=== PATIENT | female | born 1940 | race Caucasian/White ===

== ENCOUNTER → 2016-08-16 | Outpatient (CLI) | payer MEDICARE | END | disposition home or self-care (01) | LOC: CFH 10:43 | PROVIDERS: ATTEND Internal Medicine Cardiovascular Disease | DX: I08.3 Combined rheumatic disorders of mitral, aortic and tricuspid valves (principal) | CPT/HCPCS: 93306 ==

== ENCOUNTER → 2017-02-06 | Outpatient (CLI) | payer MEDICARE | LOC: CFH 10:48 | PROVIDERS: ATTEND Internal Medicine | DX: Z12.31 Encounter for screening mammogram for malignant neoplasm of breast (principal); Z79.890 Hormone replacement therapy; Z80.3 Family history of malignant neoplasm of breast; Z98.82 Breast implant status | CPT/HCPCS: 77063; 77067 ==

== ENCOUNTER 2018-02-21 10:16 | Outpatient (CLI) | payer MEDICARE ==
[2018-03-17] MEDS ORDERED: LEVO25TA2 PO (19:20)
[2018-03-17] MEDS ORDERED: FLUT16SP NS (19:21)
[2018-03-17] MEDS ORDERED: HYDROCHLOROTH12.5 MG PO (19:22)
[2018-03-18] MEDS ORDERED: METR500T PO ×2 (10:11)
[2018-03-18] MEDS ORDERED: SULF1TAB24 PO ×2 (10:11)
[2018-03-18] MEDS ORDERED: ONDA4TAB7 PO (10:11)
[2018-03-18] MEDS ORDERED: CIPR500T87 PO (11:15)
[2018-03-18] MEDS ORDERED: METR-90 PO (11:16)
== END 2018-02-21 23:59 | disposition home or self-care (01) ==
LOC: CFH 10:16
PROVIDERS: ATTEND Internal Medicine
DX: Z12.31 Encounter for screening mammogram for malignant neoplasm of breast (principal); Z80.3 Family history of malignant neoplasm of breast
CPT/HCPCS: 77063; 77067

== ENCOUNTER → 2018-03-21 | Outpatient (CLI) | payer MEDICARE ==
[~2018-03-21] MED LIST: CIPR500T87 PO; FLUT16SP NS; HYDROCHLOROTH12.5 MG PO; LEVO25TA2 PO; METR-90 PO; METR500T PO; OMNIPAQUE 350 MG/ML, 100ML BOTTLE ONE; ONDA4TAB7 PO; SULF1TAB24 PO
== END | disposition home or self-care (01) ==
LOC: CFH 14:01
PROVIDERS: ATTEND Internal Medicine
DX: K57.32 Diverticulitis of large intestine without perforation or abscess without bleeding (principal); M85.88 Other specified disorders of bone density and structure, other site; M47.816 Spondylosis without myelopathy or radiculopathy, lumbar region; K76.0 Fatty (change of) liver, not elsewhere classified; Z90.49 Acquired absence of other specified parts of digestive tract
CPT/HCPCS: 74177; Q9967

== ENCOUNTER → 2018-04-23 | Outpatient (CLI) | payer MEDICARE ==
[~2018-04-23] MED LIST changes: -OMNIPAQUE 350 MG/ML, 100ML BOTTLE ONE
== END | disposition home or self-care (01) ==
LOC: CFH 10:15
PROVIDERS: ATTEND Internal Medicine
DX: M81.0 Age-related osteoporosis without current pathological fracture (principal); N95.1 Menopausal and female climacteric states
CPT/HCPCS: 77080

== ENCOUNTER → 2019-02-25 | Outpatient (CLI) | payer MEDICARE ==
[~2019-02-25] MED LIST changes: -FLUT16SP NS; +FLUT16SP24 NS
== END | disposition home or self-care (01) ==
LOC: CFH 10:32
PROVIDERS: ATTEND Internal Medicine
DX: Z12.31 Encounter for screening mammogram for malignant neoplasm of breast (principal); N64.89 Other specified disorders of breast; Z98.82 Breast implant status
CPT/HCPCS: 77063; 77067

== ENCOUNTER → 2020-03-02 | Outpatient (CLI) | payer MEDICARE | END | disposition home or self-care (01) | LOC: CFH 13:01 | PROVIDERS: ATTEND Internal Medicine | DX: Z12.31 Encounter for screening mammogram for malignant neoplasm of breast (principal); Z12.39 Encounter for other screening for malignant neoplasm of breast | CPT/HCPCS: 76641; 77063; 77067 ==

== ENCOUNTER 2020-07-26 15:16 | Emergency (ER) | payer MEDICARE ==
[~2020-07-26] VITALS: Ht 157.5 cm; Wt 58.0 kg
[~2020-07-26 15:16] MED LIST changes: +SULF-23 PO; -SULF1TAB24 PO
[2020-07-26] MEDS ORDERED: FLUORESCEIN/BENOXINATE 5 ML DROPS OP ONE (16:00)
[2020-07-26] MEDS ORDERED: PROPARACAINE OPHTH 0.5%, 15ML ONE (16:03)
[2020-07-26 16:23] LABS: HCT (SEDRATE) 41.4 % (34.6-47.8)
[2020-07-26] MEDS ORDERED: ONDANSETRON 2MG/ML, 2ML ONE (16:29)
[2020-07-26] MEDS ORDERED: MORPHINE SULFATE 4 MG/ML, 1ML ONE (16:29)
[2020-07-26] MEDS ORDERED: MORPHINE SULFATE 4 MG/ML, 1ML IVPush PRN (16:30)
[2020-07-26] MEDS ORDERED: ONDANSETRON 2MG/ML, 2ML IVPush ONE (16:30)
[2020-07-26] MEDS ORDERED: SODIUM CHLORIDE FLUSH 10ML SYR IVF ONE (16:30)
[2020-07-26] MEDS ORDERED: OMNIPAQUE 350 MG/ML, 75ML BOTTLE ONE (17:04)
[2020-07-26 18:26] VITALS: BP 112/57
== END 2020-07-26 18:28 | disposition home or self-care (01) ==
LOC: ED 17:10
DX: H57.12 Ocular pain, left eye (principal); R51.9 Headache, unspecified; Z88.8 Allergy status to other drugs, medicaments and biological substances; Z88.0 Allergy status to penicillin
CPT/HCPCS: 36415; 70481; 85651; 96374; 96375; 99285; J2270; J2405; Q9967

== ENCOUNTER 2020-10-15 10:17 | Outpatient (CLI) | payer MEDICARE | END 2020-10-15 23:59 | disposition home or self-care (01) | LOC: CFH 10:17 | DX: M81.0 Age-related osteoporosis without current pathological fracture (principal) | CPT/HCPCS: 77080 ==

== ENCOUNTER → 2020-10-28 | Outpatient (CLI) | payer MEDICARE ==
[~2020-10-28] MED LIST changes: +GADOTERATE 10 MMOL/20ML SYR ONE
== END | disposition home or self-care (01) ==
LOC: CFH 13:06
PROVIDERS: ATTEND Otolaryngology
DX: H90.3 Sensorineural hearing loss, bilateral (principal); H92.01 Otalgia, right ear
CPT/HCPCS: 70553; A9575